=== PATIENT | male | born 1940 | race Caucasian/White ===

== ENCOUNTER 2024-01-05 13:58 | Outpatient (CLI) | payer MEDICARE, SELFPAY ==
--- NOTE | ~2024-01-05 | CT_ITS ---
EXAMINATION: CT sinus wo con DATE: 01/05/2024 14:21 INDICATION: Recurrent sinusitis TECHNIQUE: Computed tomography (CT) of the paranasal sinuses was performed without intravenous contra st. The dose-length product was 304.88 mGy-cm. Automated exposure control and iterative reconstructio n technique were employed. COMPARISON: None FINDINGS: There is mucosal thickening of the ethmoid and maxillary sinuses. There is mucoperiosteal r eaction of the left maxillary sinus. The ostiomeatal units are patent. Mastoids are pneumatized. IMPRESSION: 1. Moderate chronic sinusitis. Reviewed, dictated and finalized at location B.
== END 2024-01-05 13:59 | disposition home or self-care (01) ==
LOC: ANHIMG 14:00
PROVIDERS: PCP Family Medicine; Visit Provider Family Medicine
DX: J32.9 Chronic sinusitis, unspecified (principal)
CPT/HCPCS: 70486